=== PATIENT | female | born 1970 ===

== ENCOUNTER 2020-06-23 04:39 | Day surgery (SDC) | payer OTHER ==
[2020-06-21 13:38] VITALS: BMI 41.1
[2020-06-23] MEDS ORDERED: DEXAMETHASONE SOD PHOSPHATE 4 MG/1 ML VIAL ONE (16:14)
[2020-06-23] MEDS ORDERED: KETOROLAC TROMETHAMINE 30 MG/1 ML VIAL ONE (16:14)
[2020-06-23] MEDS ORDERED: LIDOCAINE HCL/PF 2% SDV 5ML VIAL ONE (16:14)
[2020-06-23] MEDS ORDERED: PROPOFOL 20 ML ONE (16:15)
[2020-06-23] MEDS ORDERED: SUCCINYLCHOLINE CHLORIDE 200 MG/10 ML SYRINGE ONE (16:15)
[2020-06-23] MEDS ORDERED: MIDAZOLAM HCL 2 MG/2 ML SINGLE DOSE VIAL ONE (16:15)
[2020-06-23] MEDS ORDERED: oxyCODONE HCL 5 MG TABLET PO PRN ×2 (17:09→17:17)
[2020-06-23] MEDS ORDERED: PROMETHAZINE HCL 25 MG/1 ML VIAL IVPUSH PRN (17:09)
[2020-06-23] MEDS ORDERED: ONDANSETRON 4 MG/2 ML VIAL IVPUSH PRN (17:09)
--- NOTE | 2020-06-23 17:10 | HP ---
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: Alzheimer's, CVA, Dementia, Migraine, Multiple Sclerosis, Peripheral Neuropathy, Parkinson's, Seizure, Syncope, TIA, Vertigo, Other Cardiovascular: No: AFIB, Aneurysm, Aortic Insufficiency, Aortic Stenosis, CAD, CHF, Deep Vein Thrombosis, HTN, Hyperlipdemia, NV, Mitral Insufficiency, Mitral Stenosis, Murmur, Pulmonary Hypertension, Other Pulmonary: No: Asthma, Bronchitis, Cancer, COPD, O2 Dependent, Pneumonia, Previously Intubated, Pulmonary Embolus, Pulmonary Fibrosis, Sleep Apnea, Other Gastrointestinal: No: Ascites, Cancer, Constipation, Crohn's Disease, Diverticulitis, Diverticulosis, Esophageal Varices, Gastritis, GERD, GI Bleed, Hemorrhoids, Hiatal Hernia, Inflamatory Bowel Disease, Irritable Bowel Disease, Pancreatitis, Peptic Ulcer Disease, Ulcerative Colitis, Other Hepatobiliary: No: Cirrhosis, Cholelithiasis, Cholecystitis, Choledocholith iasis, Hepatitis A, Hepatitis B, Hepatitis C, Other Renal/: No: Renal Failure, Renal Inusuff, BPH, Cancer, Hematuria, Hemodialysis, Neurogenic Bladder, Renal Calculi, UTI, Other Reproductive: No: Ectopic , Endometriosis, Fibroids, PID, Polycystic Ovary Syndrome, Postmenopausal, Other ...LMP: 06/16/20 ...LMP Comment: irregular bleeding ...: No Heme/Onc: No: Anemia, B12 Deficiency, Bleeding Disorder, Cancer, Current Chemotherapy, Current Radiation Therapy, Hemochromatosis, Hypercoaguable State, Myeloproliferative Synd, Sickle Cell Disease, Sickle Cell Trait, Thrombocytopenia, Other Infectious Disease: No: AIDS, C-Diff, Herpes Zoster, HIV, MRSA, STD's, Tuberculosis, VREF, Other Psych: No: Addictions, Anxiety, Bipolar, Depression, Panic, Psychosis, Schizophrenia, Other Musculoskeletal: No: Bursitis, Chronic low back pain, Hemiparesis, Hemiplegia, Osteoarthritis, Paraplegia, Other Rheumatology: No: Fibromyalgia, Gout, Lupus, Rheumatoid Arthritis, Sarcoidosis, Vasculitis, Other ENT: No: Allergic Rhinitis, Sinusitis, Other Endocrine: No: [place]'s Disease, Wilfredo's Disease, Diabetes Insipidus, Diabetes Mellitus, Hyperparathyroidism, Hyperthyroidism, Hypothyroidism, Osteopenia, SIADH, Other Dermatology: No: Basal Cell, Cellulitis, Eczema, Melanoma, Psoriasis, Squamous Cell, Other - Past Surgical History Past Surgical History: No: None, AAA Repair, AICD, Amputation, Appendectomy, Arthrosocopy, AV Fistula/Graft, Bariatric Surgery, Breast Biopsy, Bypass, CABG, Carotid Endarterectomy, Cataract Removal, Cholecystectomy, Colectomy, Colonoscopy, Colostomy, Craniotomy, , Cystectomy, Hernia Repair, Hysterectomy, Ileal Conduit, Ileosotomy, Joint Replacement, Kidney Transplant, Laminectomy, Liver Transplant, Mastectomy, Nephrectomy, Oopherectomy, Orchiectomy, Permanent Pacemaker, Prostatectomy, Splenectomy, Stent, Thoracotomy, TURP, Tonsillectomy, Tubal Ligation, Upper Endoscopy, Valve Replacement, Vasectomy, Vein Stripping/Ligation - Advance Directives Advance Directives: Yes: Living Will - Smoking History Smoking history: Never smoked - Alcohol/Substance Use Hx Alcohol Use: No History of Substance Use: reports: None - Social History Usual Living Arrangement: Yes: With Significant Other Do you think of yourself as: Straight/Heterosexual ADL: Independent History of Recent Travel: No Home Medications - Allergies Allergies/Adverse Reactions: Allergies Allergy/AdvReac Type Severity Reaction Status Date / Time No Known Allergies Allergy Verified 06/21/20 13:32 - Home Medications Home Medications: Ambulatory Orders NK [No Known Home Medication] 06/21/20 Family Medical History Family History: Denies Review of Systems - Review of Systems Constitutional: reports: No Symptoms Eyes: reports: No Symptoms HENT: reports: No Symptoms Neck: reports: No Symptoms Cardiovascular: reports: No Symptoms Respiratory: reports: No Symptoms Gastrointestinal: reports: No Symptoms Genitourinary: reports: No Symptoms Breasts: reports: No Symptoms Reported Musculoskeletal: reports: No Symptoms Integumentary: reports: No Symptoms Neurological: reports: No Symptoms Endocrine: reports: No Symptoms Hematology/Lymphatic: reports: No Symptoms Psychiatric: reports: No Symptoms Physical Examination Vital Signs: Vital Signs Temperature 97.7 F 06/23/20 12:48 Pulse Rate 83 06/23/20 12:48 Respiratory Rate 18 06/23/20 12:48 Blood Pressure 100/53 L 06/23/20 12:48 O2 Sat by Pulse Oximetry (%) 100 06/23/20 12:48 Constitutional: Yes: Well Nourished, No Distress, Calm Eyes: Yes: WNL, Conjunctiva Clear, EOM Intact HENT: Yes: WNL, Atraumatic, Normocephalic Neck: Yes: WNL, Supple, Trachea Midline Cardiovascular: Yes: WNL, Regular Rate and Rhythm Respiratory: Yes: WNL, Regular, CTA Bilaterally Gastrointestinal: Yes: WNL, Normal Bowel Sounds Musculoskeletal: Yes: WNL Extremities: Yes: WNL Edema: No Integumentary: Yes: WNL Neurological: Yes: WNL, Alert, Oriented ...Motor Strength: WNL Psychiatric: Yes: WNL Assessment/Plan for d and c, hysteroscopy, ablation
--- NOTE | 2020-06-23 17:12 | OP ---
Operative Note - Note: Operative Date: 06/23/20 Pre-Operative Diagnosis: menorrhagia, fibroids, pelvic pain Operation: d and c, hysteroscopy, endometrial ablation Findings: polyps Post-Operative Diagnosis: Same as Pre-op Surgeon: Horacio Yeh Anesthesiologist/SHUTTLE OPERATOR: David Atkins Anesthesia: General Estimated Blood Loss (mls): 2 (no complications ) Operative Report Dictated: Yes
[2020-06-23] MEDS ORDERED: IBUPROFEN 400 MG TABLET (FP) PO PRN (17:17)
[2020-06-23] MEDS ORDERED: ACETAMINOPHEN 325 MG TABLET (FP) PO PRN (17:17)
[2020-06-23] MEDS ORDERED: LACTATED RINGERS SOLUTION 1,000 ML IV SCH (17:30)
[2020-06-23] MEDS ORDERED: ACETAMINOPHEN 325 MG TABLET (FP) ONE (17:50)
[2020-06-23] MEDS ORDERED: oxyCODONE HCL 5 MG TABLET ONE (17:51)
[2020-06-23] MEDS ORDERED: ONDANSETRON 4 MG/2 ML VIAL ONE (17:59)
[2020-06-23] MEDS ORDERED: oxyCODONE HCL 5 MG TABLET PO ONE (18:02)
[2020-06-23] MEDS ORDERED: ACETAMINOPHEN 325 MG TABLET (FP) PO ONE (18:02)
[2020-06-23] MEDS ORDERED: ONDANSETRON 4 MG/2 ML VIAL IVPUSH ONE (18:02)
[2020-06-23 21:06] VITALS: BP 134/80; PULSE 76; TEMP 97.9
--- NOTE | 2020-06-25 08:43 | OP ---
DATE OF OPERATION: 06/23/2020 PREOPERATIVE DIAGNOSIS: Menorrhagia, fibroid uterus and pelvic pain. POSTOPERATIVE DIAGNOSIS: Uterine polyps. PROCEDURE: Dilation and curettage, hysteroscopy and endometrial ablation. SURGEON: Horacio Bingham MD SUPERVISOR ENGINE REPAIR: No assistant superintendent for curriculum. ANESTHESIOLOGIST: David Atkins MD ANESTHESIA: General. BLOOD LOSS: About 2 mL. INDICATIONS: This is a 50-year-old female patient who has many years of suffering with menorrhagia. Patient also was known to have a fibroid uterus. So, patient declined any other methods. Patient wanted to try ablation and patient has tried control pills in the past, but still had menorrhagia. DESCRIPTION OF PROCEDURE: So, patient was taken to the OR, placed on the operating table in the supine position. After general anesthesia was obtained, the patient was placed in lithotomy position. The patient's abdomen and pelvis were prepped and draped in the usual sterile manner. Heavy speculum was placed into patient's vagina. Cervix was grasped by [place] and sounded and dilated, and the D&C was performed and endometrial polyp was sent to Pathology and the scrapes. No other pathology was seen. Then we proceeded to the hysteroscopy procedure and ablation procedure at the same time by using hydro water ablation. Good hemostasis was obtained and good procedure was done. No complication. Blood loss about 2 mL. Patient tolerated procedure well, transferred to recovery room in stable condition. HORACIO BINGHAM MD [id number]
--- NOTE | 2020-06-27 15:44 | PATH ---
Surgical Pathology Report Patient Name: LIANA GARIBAY [facility]. Rec. #: [id number] /Age/Gender: 1970 (Age: 50) / F Account: [id number] Location: [facility] Taken: 06/23/2020 Received: 06/26/2020 Reported: 06/27/2020 Physicians: Horacio Yeh MD Specimen(s) Received ENDOMETRIAL CURETTINGS Clinical History Menorrhagia Final Diagnosis ENDOMETRIUM, CURETTAGE: FRAGMENTS OF ENDOMETRIAL POLYP. BENIGN ENDOCERVICAL (GLANDULAR) AND ECTOCERVICAL (SQUAMOUS) MUCOSA. Electronically Signed Yvette Reynoso M.D. Gross Description Received in formalin labeled "endometrial curettings," is a 3.0 x 2.5 x 0.4 cm aggregate of [place] brown soft tissue fragments admixed with blood-tinged mucus. The formalin is filtered and the specimen is entirely submitted in 2 cassettes. /06/26/2020 saudi/06/26/2020
== END 2020-06-23 19:30 | disposition home or self-care (01) ==
LOC: JASU-SURG 04:39
PROVIDERS: ATTEND Obstetrics & Gynecology
PROC: 0U5B8ZZ Destruction of Endometrium, Via Natural or Artificial Opening Endoscopic (ICD-10-PCS; principal; 2020-06-23 14:00)
PROC: 0UDB7ZX Extraction of Endometrium, Via Natural or Artificial Opening, Diagnostic (ICD-10-PCS; 2020-06-23 14:00)
DX: N92.0 Excessive and frequent menstruation with regular cycle (principal); N84.0 Polyp of corpus uteri
CPT/HCPCS: 88305-TC; 94760